=== PATIENT | male | born 1940 | race Caucasian/White ===

== ENCOUNTER 2017-11-08 10:21 | Outpatient (CLI) | payer MEDICARE ==
--- NOTE | 2017-11-08 13:03 | RAD ---
CHEST TWO VIEWS: HISTORY: Cough. COMPARISON: 05/22/2011 FINDINGS: Normal cardiac silhouette. Pulmonary vessels and hilum are normal. Costophrenic angles are clear. Elevation of both diaphragms, likely due to diminished lung volumes. There appears to be right lower lobe atelectasis. There is no pneumothorax or osseous abnormality. IMPRESSION: Decreased lung volumes. Elevation of right hemidiaphragm. Increased opacity in the right lung base, likely representing atelectasis. Of note, if there is concern for right diaphragmatic paralysis, a sniff test can be performed. POS: [facility]
== END 2017-11-08 10:22 | disposition home or self-care (01) ==
LOC: MADRAD 10:21
PROVIDERS: ATTEND Specialist
DX: R05 Cough (principal); R91.8 Other nonspecific abnormal finding of lung field
CPT/HCPCS: 71020

== ENCOUNTER 2018-04-01 13:28 | Outpatient (CLI) | payer MEDICARE ==
[2018-04-01 13:50] LABS: Bilirubin Negative (Negative); Blood, Urine Negative (Negative); Clarity Clear (Clear); Glucose, Urine (Dipstick) Negative (Negative); Leukocyte Negative (Negative); Nitrite Negative (Negative); Protein, Urine (Dipstick) Negative (Neg-Trace); Specific Gravity, Urine 1.015 (1.005-1.030); Urobilinogen 0.2 mg/dL (0.2-1.0)
[2018-04-01 14:32] LABS: RBC/HPF 0-3 HPF (0-3)
[2018-04-01 14:33] LABS: Bacteria/HPF Rare-Few HPF (None Seen); Squamous Epithelial 0-3 HPF (0-3); WBC/HPF 0-3 HPF (0-3)
[2018-04-01 14:36] LABS: Anion Gap 17 mmol/L (10-20); BUN (Urea Nitrogen) 36 mg/dL (8.4-25.7); Calc. Creatinine Clearance 0 mL/min (70-130); Calcium 8.5 mg/dL (7.8-10.44); Carbon Dioxide 20 mmol/L (23-31); Chloride 105 mmol/L (98-107); Estimated GFR-MDRD 29; Glucose 172 mg/dL (83-110); Potassium 4.3 mmol/L (3.5-5.1); Sodium 138 mmol/L (136-145)
== END 2018-04-01 13:29 | disposition home or self-care (01) ==
LOC: MADLAB 13:28
PROVIDERS: ATTEND Internal Medicine Nephrology
DX: N18.4 Chronic kidney disease, stage 4 (severe) (principal)
CPT/HCPCS: 36415; 80048; 81001

== ENCOUNTER 2018-07-15 08:40 | Emergency (ER) | payer MEDICARE ==
[~2018-07-15 08:40] MED LIST: Sodium Chloride Irrig Solution 250 ML BOT ONE
--- NOTE | 2018-07-15 10:04 | CT ---
CT OF THE BRAIN WITHOUT CONTRAST: INDICATION: History of fall without loss of consciousness. FINDINGS: There is a prominent CSF space posterior to the vermis suspicious for a amos cisterna magna versus ar achnoid cyst. No acute infarct, hemorrhage, or hydrocephalus is present. The septum pellucidum and third ventricle are midline. The skull appears intact. The mastoid air cells demonstrate moderate b ilateral effusions. The paranasal sinuses are otherwise clear. IMPRESSION: 1. No acute intracranial abnormality. 2. Moderate bilateral mastoid effusions. 3. Prominent cerebrospinal fluid space posterior to the vermis may reflect a amos cisterna magnum or arachnoid cyst. POS: [facility]
--- NOTE | 2018-07-15 10:06 | CT ---
CT CERVICAL SPINE WITHOUT CONTRAST: INDICATION: Fall with neck pain. COMPARISON: CT of the chest, abdomen, and pelvis dated 06/18/18. FINDINGS: No acute fracture or subluxation is evident. There is moderate multilevel spondylosis of the cervica l spine. There is slight anterior translation of C4 on C5 which is likely degenerative in nature. T he craniocervical junction appears within normal limits. Again seen is complete opacification of the right hemithorax which is stable to the prior exam. Prevertebral soft tissues are normal appearing. There is prominent effusion in the right mastoid air cells. IMPRESSION: 1. No acute fracture or subluxation is evident. 2. Moderate spondylosis of the cervical spine. 3. Stable complete opacification of the right hemithorax. POS: [facility]
[2018-07-15 10:07] LABS: #Lymphocytes 0.7 thou/uL (1.20-3.40); #Monocytes 0.5 thou/uL (0.11-0.59); #Neutrophils 2.8 thou/uL (1.40-6.50); %Eosinophils 1.2 % (0.0-10.0); %Lymphocytes 17.1 % (21.0-51.0); %Monocytes 11.7 % (0.0-10.0); Hemoglobin 9.1 g/dL (14.0-18.0); Mean Corpuscular HGB CONC 34.4 g/dL (32.0-36.0); Mean Corpuscular Hemoglobin 34.6 pg (27.0-31.0); Mean Corpuscular Volume 100.8 fL (78.0-98.0); Mean Platelet Volume 5.9 fL (7.4-10.4); Platelet Count 153 thou/uL (130-400); Red Blood Cell (RBC) Count 2.63 mill/uL (4.70-6.10); White Blood Cell (WBC) Count 4.1 thou/uL (4.8-10.8)
[2018-07-15 10:12] LABS: ALT (SGPT) 15 U/L (8-55); AST (SGOT) 31 U/L (5-34); Albumin 3.3 g/dL (3.4-4.8); Alkaline Phosphatase 116 U/L (40-150); Anion Gap 18 mmol/L (10-20); BUN (Urea Nitrogen) 20 mg/dL (8.4-25.7); Bilirubin, Total 2.4 mg/dL (0.2-1.2); Calc. Creatinine Clearance 0 mL/min (70-130); Carbon Dioxide 28 mmol/L (23-31); Chloride 94 mmol/L (98-107); Estimated GFR-MDRD 44; Globulin 3.1 g/dL (2.4-3.5); Glucose 150 mg/dL (83-110); Potassium 4.1 mmol/L (3.5-5.1); Protein, Total 6.4 g/dL (5.8-8.1); Sodium 136 mmol/L (136-145)
[2018-07-15 10:14] LABS: Anisocytosis SLIGHT = 6-15 cells (100X) (0-5/hpf)
[2018-07-15 10:15] LABS: PLT Morphology Comment Appears Adequate; Poikilocytosis SLIGHT = 6-15 cells (100X) (0-5/hpf)
== END 2018-07-15 10:25 | disposition home or self-care (01) ==
LOC: MADERS 08:40
DX: S00.03XA Contusion of scalp, initial encounter (principal); K74.60 Unspecified cirrhosis of liver; D50.9 Iron deficiency anemia, unspecified; I10 Essential (primary) hypertension; Z79.899 Other long term (current) drug therapy; W19.XXXA Unspecified fall, initial encounter
CPT/HCPCS: 70450; 72125; 80053; 85025